=== PATIENT | male | born 1985 | race Two or more races ===

== ENCOUNTER 2021-06-25 13:43 | Emergency (ER) | payer SELFPAY ==
[~2021-06-25] VITALS: Ht 180.3 cm; Wt 87.0 kg
[2021-06-25 13:50] VITALS: BP 155/65
--- NOTE | 2021-06-25 14:26 | PHYS DOC ---
Past Medical History Past Surgical History: Other General Adult EDM: Chief Complaint: EYE PROBLEMS Problems: (1) Eye pain HPI: HPI: Patient is a 35 year old male who presents with left-sided eye pain and redness. 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 He states he was using one of the landscaping tools near the edge of rocks when he felt something in his eye. He states that initially it was irritated and felt itchy, but the pain and redness has worsened since then. He states the eye does have watery discharge and is crusty in the morning, but has no other discharge or blood. Patient reports he can see a black speck in his eye. Patient states his vision is intact. Nothing like this has happened before and he has not tried any eyedrops or medication to alleviate his symptoms. Patient states he has a headache surrounding his left eye, but denies other complaints. Patient has no other injuries or complaints at this time. Review of Systems: Review of Systems: Constitutional: Denies fever or chills. [] Eyes: Reports painful red eye with watery discharge. Denies change in visual acuity. [] HENT: Denies nasal congestion or sore throat. [] Respiratory: Denies cough or shortness of breath. [] Cardiovascular: Denies chest pain or edema. [] Integument: Denies rash. [] Neurologic: Denies headache, focal weakness or sensory changes. [] Heart Score: C/O Chest Pain: No Risk Factors: Risk Factors: DM, Current or recent (<one month) smoker, HTN, HLP, family history of CAD, obesity. Risk Scores: Score 0 - 3: 2.5% MACE over next 6 weeks - Discharge Home Score 4 - 6: 20.3% MACE over next 6 weeks - Admit for Clinical Observation Score 7 - 10: 72.7% MACE over next 6 weeks - Early Invasive Strategies Physical Exam: PE: Constitutional: Well developed, well nourished, no acute distress, non-toxic appearance. [] HENT: Normocephalic, atraumatic, bilateral external ears normal, oropharynx moist, no oral exudates, nose normal. [] Eyes: Visual acuity intact bilaterally. Left side conjunctiva injected with watery discharge present. Right eye conjunctiva pink without discharge. PERRLA, EOMI. [] Cardiovascular:Heart rate regular rhythm, no murmur [] Lungs & Thorax: Bilateral breath sounds clear to auscultation [] Skin: Warm, dry, no erythema, no rash. [] Neurologic: Alert and oriented X 3, normal motor function, normal sensory function, no focal deficits noted. [] Current Patient Data: Vital Signs: Vital Signs Date Time Temp Pulse Resp B/P (MAP) Pulse Ox O2 Delivery O2 Flow Rate FiO2 06/25/21 13:50 98.5 75 16 155/65 98 Room Air 98.5 EKG: EKG: [] Radiology/Procedures: Radiology/Procedures: [] Course & Med Decision Making: Course & Med Decision Making Pertinent Labs and Imaging studies reviewed. (See chart for details) Foreign body visible in left cornea at the iris margin 5:00. Proparacaine drops were administered and the eye was flushed to attempt to remove foreign body. Attempt is unsuccessful, so a cotton swab was then used to attempt to remove foreign body with aid of a Giles lamp. Attempt was also unsuccessful. Fluorescein stain showed no other corneal lesions. Dragon Disclaimer: Dragon Disclaimer: This electronic medical record was generated, in whole or in part, using a voice recognition dictation system. Departure Departure Impression: Primary Impression: Foreign body in cornea, left eye, initial encounter Disposition: HOME / SELF CARE / HOMELESS Condition: STABLE Referrals: NO PCP (PCP) MALCOM CHAUHAN MD Patient Instructions: Eye - Foreign Body, [id number] Additional Instructions: A referral for ophthalmology was provided. Follow-up as soon as the office is able for reevaluation. Scripts Polymyxin B Sulf/Trimethoprim (POLYTRIM EYE DROPS) 10 Ml Drops 1 DROP LEFTEYE Q6HRS, #10 ML Prov: HARDIK SMITH 06/25/21 HARDIK SMITH Jun 25, 2021 14:26
[2021-06-25] MEDS ORDERED: POLY10DR LEFTEYE (15:23)
[2021-06-25] MEDS ORDERED: PROPARACAINE 0.5% OPHTH SOLUTION 15ML BOTTLE. OS ONE (15:30)
[2021-06-25] MEDS ORDERED: FLUORESCEIN OPHTH TEST STRIP. OS ONE (15:30)
== END 2021-06-25 15:00 | disposition home or self-care (01) ==
LOC: ER 13:43
DX: T15.02XA Foreign body in cornea, left eye, initial encounter (principal); X58.XXXA Exposure to other specified factors, initial encounter; Y93.89 Activity, other specified; Y92.89 Other specified places as the place of occurrence of the external cause; Y99.8 Other external cause status
CPT/HCPCS: 99284